=== PATIENT | female | born 1945 | race Caucasian/White ===

== ENCOUNTER 2023-01-02 12:37 | Emergency (ER) | payer MEDICARE ==
[~2023-01-02] VITALS: Ht 162.6 cm; Wt 54.5 kg
[~2023-01-02 12:37] MED LIST: SERT-422
[2023-01-02 12:47] VITALS: TEMP 98.3; O2SAT 97
[2023-01-02 13:37] VITALS: BP 137/64; PULSE 72; RESP 18
[2023-01-02] MEDS ORDERED: IBUPROFEN 600MG TABLET PO STA (13:37)
[2023-01-02 14:41] LABS: BASOPHILS % 0.5 % (0.0-2.0); EOSINOPHILS % 0.9 % (0.0-5.0); HEMOGLOBIN. 13.6 g/dL (12.0-16.0); LYMPHOCYTES % 25.7 % (20.0-50.0); MEAN CORPUSCULAR HEMOGLOBIN 30.4 pg (28.0-32.0); MEAN CORPUSCULAR VOLUME 89.4 fL (81.0-99.0); MEAN PLATELET VOLUME 7.6 fl (7.4-10.4); NEUTROPHILS % 65.9 % (40.0-76.0); PLATELET 348 x1000/uL (130-400); RED BLOOD CELL COUNT 4.47 mill/uL (4.2-5.4); RED CELL DISTRIBUTION WIDTH 13.7 % (11.6-14.6)
[2023-01-02 14:44] LABS: CHLORIDE 107 mEq/L (98-107)
[2023-01-02] MEDS ORDERED: TOPUD MT (15:48)
[2023-01-02] MEDS ORDERED: ACETAMINOPHEN 325MG TABLET PO ONE (16:15)
[2023-01-02] MEDS ORDERED: IBUPROFEN 600MG TABLET PO NR (16:15)
== END 2023-01-02 16:45 | disposition home or self-care (01) ==
LOC: ER 12:37
DX: M79.10 Myalgia, unspecified site (principal)
CPT/HCPCS: 36415; 80053; 85025; 99283